=== PATIENT | male | born 1980 | race Caucasian/White ===

== ENCOUNTER 2018-01-27 07:24 | Inpatient (IN) | payer OTHER ==
[~2018-01-27] VITALS: Ht 175.3 cm; Wt 102.1 kg
--- NOTE | ~2018-01-27 | OP ---
[address] [address] OPERATIVE REPORT Name: MAXIMUS CALDERON Room: [address] IN M.R.#: [id number] Admission: 01/27/18 Attend Phys: Eric Hutchinson MD Discharge: Date of : 84 Report #: [id number] THIS REPORT FOR: //name// CC: Bridger Hutchinson PREOPERATIVE DIAGNOSIS: Acute appendicitis. POSTOPERATIVE DIAGNOSIS: Acute appendicitis. OPERATIVE PROCEDURE: Laparoscopic appendectomy. OPERATING SURGEON: Eric Hutchinson MD. INDICATIONS FOR THE PROCEDURE: The patient is a 38-year-old male who presented with complaints of right lower quadrant pain that is benign for the last few days; however, increased over the last one day. Clinical exam and CT scan showed features of acute appendicitis. The patient was advised laparoscopic appendectomy. The patient showed understanding and agreed to proceed. DESCRIPTION OF PROCEDURE: After explaining to the patient in detail and informed consent was obtained. The patient was identified in the preoperative holding area. The patient was transferred to the operating room and was placed in supine position. Sequential compression devices were placed for DVT prophylaxis. Preoperative antibiotics were given. After induction of anesthesia, the abdomen was prepped and draped in a sterile fashion. Through a left upper quadrant stab incision, using a Veress needle technique, pneumoperitoneum was created. Thereafter, through a 1 cm incision in the left lower quadrant, a 5 mm trocar was introduced. Through a 2 cm supraumbilical incision, another 12 mm trocar was placed. Through a suprapubic 1 cm incision, another 5 mm trocar was placed about 3 cm above the pubic symphysis. On initial inspection, the patient was noted to have inflamed appendix, which was adherent to the surrounding structures in the right lower quadrant, which was gently dissected off. The mesoappendix was thick. I divided the mesoappendix using hook electrocautery. The appendicular artery was then coagulated. The base of the appendix was very friable and I placed an Endoloop, but it tore-off and thereafter, I attempted to close the appendicular stump with a stapler; however, I was unsuccessful and therefore, I closed the appendicular stump with 2 interrupted 2-0 Vicryl sutures and omentum was placed over this and was anchored in place. Thorough saline irrigation was given. Absolute hemostasis was ensured. The appendix was then retrieved using an EndoCatch through the supraumbilical incision. The supraumbilical incision was then closed in 2 layers using 0 Vicryl for the fascia. Skin was closed with 4-0 Monocryl for all the incisions. Approximately about 10 mL of lidocaine, Marcaine mix was injected into all the incisions. The patient was awoken up from anesthesia and was transferred to the recovery [place] [address] OPERATIVE REPORT Name: MAXIMUS CALDERON Room: [address] IN [facility].#: [id number] Admission: 01/27/18 Attend Phys: Eric Hutchinson MD Discharge: Date of : 84 Report #: [id number] ESTIMATED BLOOD LOSS: Approximately 25 mL. CONDITION: The patient is stable. FLUIDS: Given per Anesthesia note. SPECIMEN SENT: Appendix. COMPLICATIONS: None. ANESTHESIA: General anesthesia. By: [id number] Hutchinson MD /hernán
[2018-01-27 07:29] VITALS: BP 137/54
[2018-01-27] MEDS ORDERED: LEXAPRO20 MG PO (07:38)
[2018-01-27] MEDS ORDERED: WELLBUTRIN XL150 MG PO (07:38)
[2018-01-27 07:55] LABS: ABSOLUTE BASOPHILS 0.1 thou/uL (0.0-0.2); ABSOLUTE LYMPHOCYTES 2.9 thou/uL (0.8-5.3); ABSOLUTE MONOCYTES 1.2 thou/uL (0.0-1.2); ABSOLUTE NEUTROPHILS 10.3 thou/uL (1.6-8.1); BASOPHILS 0.5 %; EOSINOPHILS 0.3 %; HEMATOCRIT 44.2 % (42.0-52.0); HEMOGLOBIN 14.7 gm/dL (14.0-18.0); LYMPHOCYTES 19.9 %; MCH 28.7 pg (26.0-34.0); MCHC 33.2 g/dL (28.0-37.0); MCV 86.5 fL (80.0-100.0); MPV 9.7 fl. (7.2-11.1); NUCLEATED RBCS 0 /100WBC; PLATELET COUNT* 272 thou/uL (150-400); POLYS 71.3 %; RBC 5.11 mil/uL (4.50-6.00); RDW-CV 13.4 % (10.5-14.5); WBC 14.5 thou/uL (4.0-11.0)
[2018-01-27 08:01] LABS: CALCIUM 9.1 mg/dL (8.5-10.1)
[2018-01-27 08:05] LABS: ALBUMIN 3.8 g/dL (3.4-5.0); TOTAL BILIRUBIN 0.8 mg/dL (<0.1-1.0); TOTAL PROTEIN 7.8 g/dL (6.4-8.2)
[2018-01-27 08:19] LABS: URINE BLOOD 1+ (Negative); URINE CLARITY CLEAR; URINE COLOR DARK YELLOW; URINE GLUCOSE-RANDOM NEGATIVE (Negative); URINE KETONES 1+ (Negative); URINE LEUKOCYTES-REFLEX NEGATIVE (Negative); URINE NITRITE-REFLEX NEGATIVE (Negative); URINE PROTEIN NEGATIVE (Negative); URINE SPECIFIC GRAVITY >= 1.030 (1.005-1.030); URINE UROBILINOGEN 0.2 E.U./dl (0.2-1.0)
[2018-01-27 08:22] LABS: ICTOTEST (BILI CONFIRMATORY) Negative (Negative); URINE BILIRUBIN 2+ (Negative)
[2018-01-27 08:32] LABS: BACTERIA-REFLEX 1-9 Few /HPF (None Seen); CASTS None Seen /LPF (None Seen); CRYSTALS None Seen /LPF (None Seen); MUCUS >6 Heavy strn/LPF (None Seen); SQUAMOUS 4-10 Moderate /LPF (0-3); URINE RBC 3-10 Few /HPF (0-2); URINE WBC-REFLEX 0-5 Rare /HPF (0-5)
[2018-01-27 09:58] VITALS: BP 114/64
--- NOTE | 2018-01-27 10:54 | NUR ---
ADMITTED TO ROOM 308 THIS AM, VSS, NO DISTRESS NOTED, DISCOMFORT MANAGED WELL W/ IV MEDS. 20G TO LFA SECURE, AT BEDSIDE. ADMISSION ASSESSMENT COMPLETE, CONSENT FOR APPENDECTOMY W/ DR. TEJADA SIGNED, PRE OP CHECKLIST IN PROCESS. ORIENTED TO ROOM, PLAN OF CARE REVIEWED W/ PATIENT/SPOUSE, NO QUESTIONS AT THIS TIME. SIDERAILS UP, CALL LIGHT IN REACH, CONT POC.
[2018-01-27 11:04] VITALS: BP 103/57
[2018-01-27 16:00] VITALS: BP 117/59
--- NOTE | 2018-01-27 18:57 | NUR ---
APPY RESCHEDULED FOR AM, VSS, PAIN MANAGED WELL, CLD ORDERED.
[2018-01-27 19:55] VITALS: BP 118/55
[2018-01-27 22:20] VITALS: BP 123/62
[2018-01-28 04:00] VITALS: BP 105/54
--- NOTE | 2018-01-28 06:02 | NUR ---
PT SLEPT ON AND OFF THIS SHIFT. ASSESSMENT DOCUMENTED. MEDS GIVEN PER E-MAY. IV PATENT, FLUIDS INFUSING. PAIN MEDS GIVEN PER E-MAY. PT VERY ANXIOUS THIS SHIFT. PT REPORTED CHEST PAIN, VSS, EKG DONE, DR NOTIFIED, MEDS FOR ANXIETY GIVEN WITH RELIEF. PT REMAINED NPO AFTER MIDNIGHT. WILL CONTINUE WITH PLAN OF CARE.
[2018-01-28 10:08] VITALS: BP 129/77
--- NOTE | 2018-01-28 11:19 | NUR ---
SW met with pt to complete initial assessment, introduce self, and SW role. Pt was sleeping. Pt lives at home with and 2 children. No needs expressed at this time. SW to continue to follow.
--- NOTE | 2018-01-28 16:36 | NUR ---
PATIENT A&OX4, RA, ON CONTINOUS PULSE OX POST SURGERY FOR APPENDECTOMY. IV LEFT FOREARM FLUIDS INFUSSING, POST SURGERY ABX. UP STAND BY, STEADY GAIT, WALKED AROUND NURSES STATION, NO COMPLAINTS. C/O ABD PAIN, RELIEF WITH MEDICATION. AT BEDSIDE. NO OTHER CONCERNS AT THIS TIME.
--- NOTE | 2018-01-28 18:13 | EKG ---
[place] [address] ELECTROCARDIOGRAM REPORT Name: MAXIMUS CALDERON Room: [address] ADM IN M.R.#: [id number] Admission: 01/27/18 Attend Phys: Eric Hutchinson MD Discharge: Date of : 84 Report #: [id number] THIS REPORT FOR: //name// [facility] Test Date: 2018-01-27 Test Time: 22:31:27 Pat Name: MAXIMUS CALDERON Department: Room: [address] Gender: M Sponge Diver: AP : 1980 Requested By: Eric Hutchinson Order Number: [id number] Reading MD: Sal Joel Measurements Intervals [place] Rate: 87 P: 13 DE: 159 QRS: 8 QRSD: 98 T: 13 QT: 346 QTc: 417 Interpretive Statements Sinus rhythm No previous ECG available for comparison Electronically Signed On 01-28-2018 18:13:17 CDT by Sal Joel [email or web address] <ELECTRONICALLY SIGNED> By: Sal Joel MD, [facility] 01/28/18 [id number] [id number] Sal Joel MD, FACC /EPI
[2018-01-28 23:50] VITALS: BP 131/72
--- NOTE | 2018-01-29 05:31 | NUR ---
PATIENT SLEPT WELL DURING THIS NIGHT. PT WITH THREE ABDOMINAL LAP SITES WITH DSGS C/D/I. PT C/O ABDOMIANL PAIN AND RT SHOULDER PAIN. FENTANYL 50MCG IV GIVEN X4 AND HYDROCODONE 1 TAB GIVEN X1. PT SLEPT AFTER RECEIVING EACH OF THESE. FLUIDS/ANTIBIOTICS INFUSING PER DR ORDER. FREQUENLTY USED ITEMS AND CALL LIGHT WITHIN REACH. SIDERAILS UPX2 WILL CONTINUE TO MONITOR.
[2018-01-29 08:00] VITALS: BP 122/72
[2018-01-29] MEDS ORDERED: NORCO 5-325 TA1 EACH PO (09:47)
[2018-01-29] MEDS ORDERED: FLAGYL500 MG PO (10:07)
[2018-01-29] MEDS ORDERED: LEVAQUIN 500 M500 M2 PO (10:08)
[2018-01-29 10:46] VITALS: BP 122/72
--- NOTE | 2018-01-29 11:55 | NUR ---
DISCHARGE ORDERS RECEIVED, IV ACCESS REMOVED W/O INCIDENT. DISCHARGE INSTRUCTIONS, F/U APPTS, PRESCRIPTIONS DISCUSSED WITH PATIENT AND SPOUSE, NO QUESTIONS AT THIS TIME. PERSONAL EFFECTS GATHERED, ACCOUNTED FOR, IN COMPANY OF PATIENT, AMBULATED TO MAIN ENTRANCE WITH STAFF IN STABLE CONDITION.
--- NOTE | 2018-01-30 17:08 | PATH ---
[address] [address] PATHOLOGY RPT PROCEDURE Name: MAXIMUS CALDERON Room: [address] IN M.R.#: [id number] Admission: 01/27/18 Date of : 84 Discharge: 01/29/18 Report #: [id number] Path Case #: [id number] [facility] Accession Number: [id number] . 01 Material submitted: . APPENDIX . 01 Clinician provided ICD-10: R10.9 . 01 Clinical history: . Abdominal pain . 02 Diagnosis: Appendix: - Chronic and acute gangrenous appendicitis, periappendicitis and serositis. . (KRISTI:minesh; 01/30/2018) MBR/01/30/2018 . 02 Electronically signed: . Harvey Nelson MD, Pathologist NPI- [id number] . 01 Gross description: . The specimen is received in formalin, labeled "ayah Ramirez". Received is a vermiform appendix measuring 7.8 cm in length by up to 1.5 cm in diameter with a large amount of attached mesoappendix. The serosal surface is pink-dee in appearance and is from the underlying appendix. Sectioning reveals a patent to dilated lumen filled with fecal material. A single fecalith is present measuring 1.1 cm in length by 1.0 cm in diameter. No distinct nodules or lesions are noted grossly. The specimen is submitted representatively in cassettes A1 through A4, with the proximal margin and bisected tip submitted in cassette A1. (CAA; 01/29/2018) QAC/QAC . 02 Pathologist provided ICD-10: K35.891 . 02 CPT . 763348 Specimen Comment: A courtesy copy of this report has been sent to Specimen Comment: [phone], . Specimen Comment: Report sent to / DR IVAN Performed at: [address] [place] [address] PATHOLOGY RPT PROCEDURE Name: MAXIMUS CALDERON Room: [address] IN ..#: [id number] Admission: 01/27/18 Date of : 84 Discharge: 01/29/18 Report #: [id number] Path Case #: [id number] [address] [facility] [address], [place] [id number] MD Ibrahima Wilburn MD Phone: [phone] Performed at: [address] [address] [address], [place], [place] [id number] MD Harvey Nelson MD Phone: [phone]
== END 2018-01-29 11:59 | disposition home or self-care (01) | DRG 854 ==
LOC: M.ERS 07:24 → M.3W 09:34 → M.TBA-ER 09:34 → M.3W 10:07
PROVIDERS: Emergency Medicine Emergency Medical Services; ADMIT Surgery
PROC: 0DTJ4ZZ Resection of Appendix, Percutaneous Endoscopic Approach (ICD-10-PCS; principal; 2018-01-28)
DX: A41.9 Sepsis, unspecified organism (principal); K35.80 Unspecified acute appendicitis; F32.9 Major depressive disorder, single episode, unspecified; Z79.899 Other long term (current) drug therapy